=== PATIENT | male | born 1970 | race Caucasian/White ===

== ENCOUNTER 2016-11-09 17:42 | Emergency (ER) | payer OTHER ==
[~2016-11-09] VITALS: Wt 70.8 kg
[2016-11-09] MEDS ORDERED: TETRACAINE 0.5% 15 ML OPH LEFT EYE ONE (19:00)
[2016-11-09] MEDS ORDERED: IBUPROFEN 600 MG TAB PO ONE (19:00)
[2016-11-09] MEDS ORDERED: ACET1TAB40 PO (19:28)
[2016-11-09] MEDS ORDERED: ERYTOPOI RIGHT EYE (19:28)
--- NOTE | 2016-11-09 19:30 | ERD ---
ER Documentation Chief Complaint Date/Time DATE: 11/09/16 TIME: 19:28 Chief Complaint RIGHT EYE PAIN AND REDNESS FOR 2 DAYS. MILD DRAINAGE. HPI This 46-year-old male presents with a irritation for last 2 days. He noticed a possible foreign body. He was using some machinery but coronary specific incident of foreign body flying in his eye. Is a visual changes or visual field deficits, fevers. ROS All systems reviewed and are negative except as per history of present illness. Medications Home Meds Active Scripts Erythromycin* (Erythromycin* Ophthalmic) 1 Applic Oint, 1 APPLIC RIGHT EYE QID for 7 Days Prov:BUTCH CAMPOVERDE MD 11/09/16 Acetaminophen with Codeine (Acetaminophen-Cod #3 Tablet) 1 Each Tablet, 1 TAB PO Q6H Y for PAIN, #7 TAB Prov:BUTCH CAMPOVERDE MD 11/09/16 Allergies Allergies: Coded Allergies: No Known Allergy (Unverified , 11/09/16) PMhx/Soc Hx Alcohol Use: Yes Hx Substance Use: Yes Hx Tobacco Use: Yes Smoking Status: Current every day smoker Physical Exam Vitals Vital Signs Date Time Temp Pulse Resp B/P Pulse Ox O2 Delivery O2 Flow Rate FiO2 11/09/16 17:43 97.5 94 21 140/81 98 Physical Exam Const: [] Alert, not ill-appearing. Head: Atraumatic Eyes: Slight scleral redness. There is a less than 1 mm foreign body at the border of the sclera and cornea at 3:00 in the right eye. Is no periorbital swelling or proptosis. Eyes are PERRL Anterior chambers appear normal. ENT: Normal External Ears, Nose and Mouth. Neck: Full range of motion..~ No meningismus. Resp: Clear to auscultation bilaterally Cardio: Regular rate and rhythm, no murmurs Abd: Soft, non tender, non distended. Normal bowel sounds Skin: No petechiae or rashes Back: No midline or flank tenderness Ext: No cyanosis, or edema Neur: Awake and alert Psych: Normal Mood and Affect Results 24 hrs Current Medications Medications (Trade) Dose Ordered Sig/Juan Route PRN Reason Start Time Stop Time Status Last Admin Dose Admin Ibuprofen (Motrin) 600 mg ONCE ONCE PO 11/09/16 19:00 11/09/16 19:01 DC Tetracaine HCl (Tetracaine 0.5% Oph) 1 drop ONCE ONCE LEFT EYE 11/09/16 19:00 11/09/16 19:01 DC Procedures/MDM Tetracaine was applied. Using 18-gauge needle the foreign body was successfully removed. There is appreciable bleeding or discharge percent patient's related foreign body removal. Patient will be discharged home with prescription of erythromycin and referral to ophthalmology for recheck for pain suite. He shows return for fevers, visual changes, new or worsening symptoms. Center symptoms are consistent with globe rupture, recommendation, orbital cellulitis, patient' s tetanus is up-to-date. Departure Diagnosis: Primary Impression: Corneal foreign body Encounter type: initial encounter Laterality: right Qualified Code: T15.01XA - Corneal foreign body, right, initial encounter Condition: Stable Patient Instructions: Corneal Foreign Body, Removed Referrals: [facility] Hours: Fri - Fri 9:00 AM - 5:00 PM Additional Instructions: See lock operator for pain Friday or Friday. Recheck otherwise for fevers, redness, or new worsening symptoms. BUTCH CAMPOVERDE MD Nov 09, 2016 19:30
== END 2016-11-09 20:06 | disposition home or self-care (01) ==
LOC: FTE 17:42
DX: T15.01XA Foreign body in cornea, right eye, initial encounter (principal); F17.210 Nicotine dependence, cigarettes, uncomplicated; W22.8XXA Striking against or struck by other objects, initial encounter; Y92.9 Unspecified place or not applicable
CPT/HCPCS: 65220; Z7502; Z7610